=== PATIENT | female | born 1970 | race Caucasian/White ===

== ENCOUNTER → 2016-12-28 | Outpatient (CLI) | payer OTHER ==
--- NOTE | 2016-12-30 10:16 | MM ---
Reason for exam: screening (asymptomatic). Last mammogram was performed 9 years and 3 months ago. History: Taking hormonal contraceptives beginning at age 35. Physical Findings: A clinical breast exam by your physician is recommended on an annual basis and results should be correlated with mammographic findings. MG Screening Mammo w CAD Bilateral CC and MLO view(s) were taken. Prior study comparison: November 19, 2010, mammogram, performed at [facility]. November 13, 2010, mammogram, performed at [facility]. October 11, 2007, bilateral mammo digital work up. October 04, 2007, bilateral digital screening mammogram. The breast tissue is heterogeneously dense. This may lower the sensitivity of mammography. There is no discrete abnormality. ASSESSMENT: Negative, BI-RAD 1 RECOMMENDATION: Routine screening mammogram of both breasts in 1 year.
== END | disposition home or self-care (01) ==
LOC: RADMAMWWP 10:33
PROVIDERS: ATTEND Obstetrics & Gynecology
DX: Z12.31 Encounter for screening mammogram for malignant neoplasm of breast (principal)

== ENCOUNTER → 2018-08-30 | Outpatient (CLI) | payer OTHER ==
--- NOTE | 2018-08-30 09:25 | CT ---
EXAMINATION TYPE: CT abdomen pelvis w con DATE OF EXAM: 08/30/2018 HISTORY: Intermittent abdominal pain and chronic constipation per order. CT DLP: 781.2mGycm Automated Exposure Control for Dose Reduction was Utilized. CONTRAST: CT scan of the abdomen and pelvis is performed with oral and with IV Contrast, patient injected with 100 mL of Isovue 300. COMPARISON: Complete abdominal ultrasound July 31, 2014 FINDINGS: LUNG BASES: No significant abnormality is appreciated. LIVER/GB: No significant abnormality is appreciated. PANCREAS: No significant abnormality is seen. SPLEEN: No significant abnormality is seen. ADRENALS: No significant abnormality is seen. KIDNEYS: No significant abnormality is seen. BOWEL: Oral contrast reaches level of the proximal sigmoid colon. There is no suspicious small or lar ge bowel dilatation. No significant fecal prominence in the colon is identified. UTERUS/ADNEXA: Anteverted uterus is present. Left ovary is 2.2 cm low dense lesion felt to reflect pr ominent follicle or simple small ovarian cyst axial image 68. LYMPH NODES: No greater than 1cm abdominal or pelvic lymph nodes are appreciated. OSSEOUS STRUCTURES: No significant abnormality is seen. OTHER: No significant additional abnormality is seen. IMPRESSION: No significant finding is seen to account for patient's clinical symptoms of pain and con stipation.
== END | disposition home or self-care (01) ==
LOC: RADCTMAIN 06:39
PROVIDERS: ATTEND Family Medicine
DX: R10.9 Unspecified abdominal pain (principal)
CPT/HCPCS: 74177; Q9967

== ENCOUNTER 2018-09-27 08:23 | Day surgery (SDC) | payer OTHER ==
[2018-09-26 10:37] VITALS: BMI 27.0
[~2018-09-27 08:23] MED LIST: HYDROmorphone 0.5 MG/0.5 ML SYRINGE IVP PRN; LACTATED RINGERS 1,000 ML IV SCH
[2018-09-27 09:57] VITALS: TEMP 97.7
[2018-09-27] MEDS ORDERED: PROPOFOL 10 MG/ML 20 ML VIAL IV ONE (10:33)
[2018-09-27 11:04] VITALS: RESP 16
--- NOTE | 2018-09-27 11:09 | P.PCN ---
Date of Procedure: 09/27/18 Procedure(s) Performed: Procedure: Total colonoscopy. Preoperative diagnosis: Change in bowel habits. Postoperative diagnosis: Exam within normal limits. Preparation: HalfLytely prep. Sedation: Was provided by anesthesia. Brief clinical history: The patient is a 48-year-old female who I have evaluated in the office last month because of abdominal bloating and gassiness as well as change in bowels and caliber of stools off around 4-6 months duration. No family history of colon cancer or prior colonoscopy. Procedure: With the patient on her left lateral decubitus position and after informed consent and adequate sedation, the perianal area was inspected and it did not show any fissures or fissure. There were no masses felt on digital rectal examination. The Olympus CFH 190L video colonoscope was then inserted in the rectum in the usual fashion and advanced to the cecum. The mucosa appeared healthy. No polyps or tumors were seen or any obvious diverticular disease or other pathology. I retroflexed the endoscope in the rectum before the endoscope was withdrawn. The patient tolerated the procedure well. Plan: The patient was reassured. Discussed dietary measures. She will follow- up in the office as planned and I will keep you updated on her progress.
[2018-09-27 11:17] VITALS: BP 118/82; PULSE 89
== END 2018-09-27 11:43 | disposition home or self-care (01) ==
LOC: ORWHC2ENDO 08:23
DX: R19.4 Change in bowel habit (principal); Z88.2 Allergy status to sulfonamides
CPT/HCPCS: 45378; J2704

== ENCOUNTER → 2019-09-25 | Outpatient (CLI) | payer OTHER ==
--- NOTE | 2019-09-25 08:04 | US ---
EXAMINATION TYPE: US abdomen complete DATE OF EXAM: 09/25/2019 COMPARISON: CT 08/30/2018 CLINICAL HISTORY: R10.13 Epigastric Pain,R10.11 RUQ ABD Pain,K59.09. EXAM MEASUREMENTS: Liver Length: 12.8 cm Gallbladder Wall: 0.1 cm CBD: 0.4 cm Spleen: 10.4 cm Right Kidney: 9.6 x 5.0 x 3.8 cm Left Kidney: 9.4 x 4.9 x 5.5 cm Pancreas: wnl Liver: wnl Gallbladder: wnl Evidence for sonographic Cline's sign: no CBD: wnl Spleen: wnl Right Kidney: wnl, junctional fat wedge noted mid cortex (incidental and benign finding). Left Kidney: wnl Upper IVC: wnl Abd Aorta: wnl; very mild intimal wall thickening noted left Common Iliac Artery. The liver is homogenous. The intrahepatic portion of the IVC and proximal abdominal aorta are within normal limits. There is no evidence of cholelithiasis. Common bile duct is unremarkable. The visu alized portions of the pancreas are homogenous. The spleen is unremarkable. Kidneys are symmetric a nd free of hydronephrosis. No renal lesions are seen. IMPRESSION: No sonographic evidence of cholelithiasis nor acute cholecystitis. Given this patient's s ymptoms HIDA scan with CCK could be considered to evaluate for biliary dyskinesia or chronic cholecys titis.
== END | disposition home or self-care (01) ==
LOC: RADUSWWP 06:52
PROVIDERS: ATTEND Family Medicine
DX: K59.09 Other constipation (principal); R10.13 Epigastric pain; R10.11 Right upper quadrant pain
CPT/HCPCS: 76700

== ENCOUNTER → 2020-12-30 | Outpatient (CLI) | payer OTHER ==
--- NOTE | 2021-01-01 14:07 | MM ---
Reason for exam: screening (asymptomatic). Last mammogram was performed 4 years ago. History: Family history of breast cancer in sister at age 54. Took hormonal contraceptives beginning at age 35. Physical Findings: A clinical breast exam by your physician is recommended on an annual basis and results should be correlated with mammographic findings. MG Screening Mammo w CAD Bilateral CC and MLO view(s) were taken. Prior study comparison: December 28, 2016, bilateral MG screening mammo w CAD. November 19, 2010, mammogram, performed at [facility]. The breast tissue is heterogeneously dense. This may lower the sensitivity of mammography. There is a new mass in the far posterior left breast. There is a new asymmetry in the upper right breast on MLO view only. ASSESSMENT: Incomplete: need additional imaging evaluation, BI-RAD 0 RECOMMENDATION: Diagnostic mammogram of both breasts. If lesion persists on supplemental views, image directed ultrasound is recommended. [facility] will attempt to contact patient to return for supplemental views and ultrasound if indicated. NAVNEET
== END | disposition home or self-care (01) ==
LOC: RADMAMWWP 15:12
PROVIDERS: ATTEND Family Medicine
DX: Z12.31 Encounter for screening mammogram for malignant neoplasm of breast (principal); Z80.3 Family history of malignant neoplasm of breast
CPT/HCPCS: 77067

== ENCOUNTER → 2021-01-21 | Outpatient (CLI) | payer OTHER ==
--- NOTE | 2021-01-22 10:08 | MM ---
Reason for exam: additional evaluation requested from abnormal screening. Last mammogram was performed 1 month ago. History: Family history of breast cancer in sister at age 54. Took hormonal contraceptives beginning at age 35. Physical Findings: Nurse did not find any significant physical abnormalities on exam. MG Work Up Mamm w CAD BILAT Bilateral spot compression MLO and LM view(s) were taken. CC with magnification view(s) were taken of the left breast. Prior study comparison: December 30, 2020, bilateral MG screening mammo w CAD. December 28, 2016, bilateral MG screening mammo w CAD. Left 1.4cm focal asymmetry posterior wall, ultrasound left superior and central at chest wall. Right 4cm focal asymmetry axillary tail, 9cm from nipple. Right 2cm nodule 10-11 o'clock, 8cm from nipple. These results were verbally communicated with the patient and result sheet given to the patient on 01/21/21. ASSESSMENT: Incomplete: need additional imaging evaluation, BI-RAD 0 RECOMMENDATION: Ultrasound of both breasts.
--- NOTE | 2021-01-22 10:10 | USB ---
Reason for exam: additional evaluation requested from abnormal screening. History: Family history of breast cancer in sister at age 54. Took hormonal contraceptives beginning at age 35. US Breast Workup Limited JENNIFER Right limited breast ultrasound including focal area of concern, retroareolar and axilla demonstrates a 0.7 x 0.4 x 0.8cm cystic complex cyst at 10 o'clock. Left limited breast ultrasound including focal area of concern, retroareolar and axilla demonstrates a 1.0 x 0.4 x 0.7cm cystic complex cyst at 3 o'clock. Probably benign, does not correlate to mammographic findings. These results were verbally communicated with the patient and result sheet given to the patient on 01/21/21. ASSESSMENT: Probably benign, BI-RAD 3 RECOMMENDATION: Ultrasound of both breasts in 6 months.
== END | disposition home or self-care (01) ==
LOC: RADMAMWWP 10:04
PROVIDERS: ATTEND Family Medicine
DX: N63.11 Unspecified lump in the right breast, upper outer quadrant (principal); N64.89 Other specified disorders of breast; Z80.3 Family history of malignant neoplasm of breast
CPT/HCPCS: 77066

== ENCOUNTER → 2021-03-20 | Outpatient (CLI) | payer OTHER ==
[2021-03-20 10:29] VITALS: BP 122/82; PULSE 70; RESP 16; TEMP 98.1
--- NOTE | 2021-03-20 11:05 | P.GSHP ---
History of Present Illness H&P Date: 03/20/21 Chief Complaint: abnormal bilateral breast ultrasound Esther is a 50 year old white female seen in consultation for Dr. Mora regarding a mammographic abnormality in both breast. She does not feel any lumps masses or nodules of concern in either breast. She gets mammograms once a year, she her last mammogram was approximately a year ago. She does not complain of any nipple discharge or skin changes. She is not complaining of any trauma or infection in the breast. She's never had any surgery on her breast. Caffeine: 12 oz/day nicotine: none chocolate: weekly BCP: 10 years stopped at the age of 29 Family History: sister: breast cancer, age 53 did not have genetic testing paternal grandfather: prostate cancer Hormonal History: menarche: 14 , breast fed: yes, age at first : 27 periods regular BCP: 10 years stopped at 29 hormones: IUD placed for heavy periods; 5 year Mirena ? hormone releasing; (levonorgesterel a progestin does not contain estrogen) Surgical History: knee surgery foot surgery tonsil Medical History: none Social History: nicotine: noen alcohol: wine twice a month drugs: none - Constitutional Constitutional: Denies chills, Denies fever - EENT Eyes: denies blurred vision, denies pain Ears: deny: decreased hearing, tinnitus Ears, nose, mouth and throat: Denies headache, Denies sore throat - Breasts Breasts: bilateral: as per HPI - Cardiovascular Cardiovascular: Denies chest pain, Denies shortness of breath - Respiratory Respiratory: Denies cough, Denies 7 - Gastrointestinal Gastrointestinal: Denies abdominal pain, Denies diarrhea, Denies nausea, Denies vomiting - Genitourinary (Female) Genitourinary: Denies dysuria, Denies hematuria - Menstruation Comment: Mirena: ? hormone releasing Menstruation: Reports as per HPI - Musculoskeletal Musculoskeletal: Denies myalgias - Integumentary Integumentary: Denies pruritus, Denies rash - Neurological Neurological: Denies numbness, Denies weakness - Psychiatric Psychiatric: Denies anxiety, Denies depression - Endocrine Endocrine: Denies fatigue, Denies weight change - Hematologic/Lymphatic Comment: none - Allergic/Immunologic Allergic/Immunologic: Reports as per HPI Past Medical History Additional Past Medical History / Comment(s): constipation,pressure and bloating daily History of Any Multi-Drug Resistant Organisms: None Reported Past Surgical History: Section, Orthopedic Surgery Additional Past Surgical History / Comment(s): bunnionectomy,knee procedure, Past Anesthesia/Blood Transfusion Reactions: No Reported Reaction Smoking Status: Never smoker Past Alcohol Use History: Rare Past Drug Use History: None Reported - Past Family History Mother Family Medical History: No Reported History Medications and Allergies Home Medications Medication Instructions Recorded Confirmed Type Fish Oil (Unknown Dose) 1 tab PO DAILY 09/26/18 03/20/21 History L.acidoph,Paracasei, B.lactis 1 each PO DAILY 09/26/18 03/20/21 History [Probiotic] Vitamin D3 (Unknown Dose) 1 tab PO QAM 09/26/18 03/20/21 History Cyanocobalamin (Vitamin B-12) 5,000 mcg PO DAILY 03/20/21 03/20/21 History [Vitamin B12] Allergies Allergy/AdvReac Type Severity Reaction Status Date / Time Sulfa (Sulfonamide Allergy Rash/Hives Verified 03/20/21 10:26 Antibiotics) Surgical - Exam Vital Signs Temp Pulse Resp BP Pulse Ox 98.1 F 70 16 122/82 100 03/20/21 10:26 03/20/21 10:26 03/20/21 10:26 03/20/21 10:26 03/20/21 10:26 BMI 29.3 - General BMI 29.3 no distress - Eyes normal ocular movement - ENT no hearing loss - Neck no masses, trachea midline - Respiratory normal respiratory effort, clear to auscultation - Cardiovascular Rhythm: regular Heart Sounds: normal: S1, S2 - Abdomen Abdomen: soft - Integumentary normal turgor/tattoo left chest wall - Neurologic no disoriented, no combative - Musculoskeletal normal gait, normal posture - Psychiatric oriented to time, oriented to person, oriented to place, speech is normal, memory intact Breast Exam: BRA: 36C inspection: Grade 2 ptosis bilaterally Palpation: Right breast: Multi-positional exam fibrocystic changes, no dominant masses or nodules of concern Right axilla: No adenopathy of concern Left breast: Multi-positional exam fibrocystic changes no dominant masses or nodules of concern Left axilla: No adenopathy of concern Results Mammogram and ultrasound reviewed with Dr. De La Fuente. His recommendation is for ultrasound-guided core biopsy on both breasts. In the right breast 10 o'clock position, in the left breast 3 o'clock position with attempted aspiration first and if this is unable to be aspirated a core biopsy to be performed Assessment and Plan Assessment: Impression: 1. Radiographic abnormality bilateral breast 2. Patient sent to be placed which is a synthetic progestin admitting device Plan: 1. Ultrasound-guided core biopsy right breast 10 o'clock position, attempt at aspiration left breast 3 o'clock position if this can be aspirated aspiration otherwise core biopsy 2. Consider whether the IUD is a good choice at this time 3. Family history of breast cancer 4. Patient will have ultrasound core biopsies and/or aspiration of the lesions in the breast. Depending on results of this the patient will decide whether she wants to keep the IUD in place CC: Dr. Isaac Montilla
== END ==
LOC: WWCWWP 09:54
PROVIDERS: ATTEND Surgery
DX: R92.8 Other abnormal and inconclusive findings on diagnostic imaging of breast (principal); Z88.2 Allergy status to sulfonamides

== ENCOUNTER → 2021-03-31 | Outpatient (CLI) | payer OTHER ==
[2021-03-31 12:16] VITALS: RESP 16; TEMP 98.2
[2021-03-31 13:39] VITALS: BP 116/80; PULSE 73
--- NOTE | 2021-03-31 13:50 | USB ---
EXAMINATION TYPE: US breast aspiration single RT, US breast aspiration single LT DATE OF EXAM: 03/31/2021 COMPARISON: NONE CLINICAL HISTORY: R92.8 Abnormal Mammogram. Informed consent was obtained and all the patient's questions were answered. Right breast: Cyst at the right breast 10:00 position was localized sonographically. The standard [place] rile technique was utilized as well as appropriate local anesthesia with 1% lidocaine. An 18-gauge ne edle was introduced into the cyst and 0.3 mL's of the pinkish fluid was obtained. The cyst was no sangeeta kirstin visible. Clip device was then deployed. Post procedural mammogram demonstrates appropriate clip p lacement. Left breast:Cyst at the left 3:00 position was localized sonographically. The standard sterile techni que was utilized as well as appropriate local anesthesia with 1% lidocaine. An 18-gauge needle was in troduced into the cyst and 0.4 mLsof pinkish fluid was obtained. The cyst was no longer visible. Cli p device was then deployed. Post procedural mammogram demonstrates appropriate clip placement. IMPRESSION: Bilateral cyst aspirations at the right 10:00 position of left 3:00 position. Cytology r esults are pending.
--- NOTE | 2021-03-31 13:57 | MM ---
Reason for exam: additional evaluation requested from abnormal screening. Last mammogram was performed 2 months ago. History: Family history of breast cancer in sister at age 54. Took hormonal contraceptives beginning at age 35. MG Diagnostic Usman BI Wo CAD Bilateral CC and MLO view(s) were taken. Prior study comparison: January 21, 2021, bilateral MG work up mamm w CAD BILAT. December 30, 2020, bilateral MG screening mammo w CAD. ASSESSMENT: Post procedure mammogram for marker placement RECOMMENDATION: Ultrasound of both breasts in 6 months. PENDING PATHOLOGY RESULTS.
== END | disposition home or self-care (01) ==
LOC: RADUSWWP 11:52
PROVIDERS: ATTEND Surgery
DX: N60.01 Solitary cyst of right breast (principal); N60.02 Solitary cyst of left breast; Z80.3 Family history of malignant neoplasm of breast
CPT/HCPCS: 77066; 76942; 19000 ×2; A4648; J2001; 88108

== ENCOUNTER → 2021-04-10 | Outpatient (CLI) | payer OTHER ==
[2021-04-10 13:27] VITALS: BP 113/77; PULSE 79; RESP 16; TEMP 98
--- NOTE | 2021-04-10 13:59 | P.PN ---
Progress Note - Text Progress Note Date: 04/10/21 Esther is a 50-year-old white female who underwent bilateral breast aspirations on . This revealed bland ductal and apocrine cells in the background of foamy histiocytes. Both were consistent with fibrocystic changes and no evidence of cancer was identified. This was felt to be concordant as per radiology and mammogram of both breasts in 6 months was recommended. The patient tolerated the procedure without difficulty. Examination of both breasts reveals that the biopsy sites are clean and dry with no evidence of any infection Patient has questions regarding her IUD use and based on the findings on the recent aspiration she does not have any atypia or 3 malignant changes noted. She is going to discuss this with her lens assistant. CC: Dr. Mora, Dr. Gee
== END ==
LOC: WWCWWP 13:11
PROVIDERS: ATTEND Surgery
DX: N60.11 Diffuse cystic mastopathy of right breast (principal); N60.12 Diffuse cystic mastopathy of left breast; Z88.2 Allergy status to sulfonamides

== ENCOUNTER → 2021-10-13 | Outpatient (CLI) | payer OTHER ==
--- NOTE | 2021-10-14 08:40 | MM ---
Reason for exam: follow-up at short interval from prior study. Last mammogram was performed 6 months ago. History: Family history of breast cancer in sister at age 54. Benign US breast aspiration single LT of the left breast, March 31, 2021. Benign US breast aspiration single RT of the right breast, March 31, 2021. Taking hormonal contraceptives for 16 years beginning at age 35. Physical Findings: A clinical breast exam by your physician is recommended on an annual basis and results should be correlated with mammographic findings. MG 3D Diag Mammo W/Cad JENNIFER Bilateral CC, MLO, and XCCL view(s) were taken. Prior study comparison: March 31, 2021, bilateral MG diagnostic laverne BI wo CAD. January 21, 2021, bilateral MG work up mamm w CAD BILAT. The breast tissue is heterogeneously dense. This may lower the sensitivity of mammography. Previous mammotome biopsy in the right breast. No persisting abnormality on 3D images. The previous ribbon clip on the left is outside the field of view. No significant changes when compared with prior studies. ASSESSMENT: Benign, BI-RAD 2 RECOMMENDATION: Routine screening mammogram of both breasts in 1 year. Back on schedule.
== END | disposition home or self-care (01) ==
LOC: RADMAMWWP 12:51
PROVIDERS: ATTEND Surgery
DX: R92.8 Other abnormal and inconclusive findings on diagnostic imaging of breast (principal); Z80.3 Family history of malignant neoplasm of breast
CPT/HCPCS: 77066; G0279; 77062

== ENCOUNTER → 2021-10-17 | Outpatient (CLI) | payer OTHER ==
[2021-10-17 10:25] VITALS: BP 118/78; PULSE 83; RESP 18; TEMP 98.3
--- NOTE | 2021-10-17 11:00 | P.PN ---
Subjective Progress Note Date: 10/17/21 Principal diagnosis: fibrocystic breast changes Esther is a 51-year-old white female is seen regarding fibrocystic breast changes. She does not complain of any nipple discharge or skin changes. She is not complaining of any trauma or infection in the breast. She's never had any surgery on her breast, but has had bilateral cyst aspirations. She had an IUD placed secondary to very heavy periods approximately 9 months ago. She continues to have menstrual flow but it is very light. It is regular. She had bilateral breast ultrasound guided cyst aspiration on 03-31-21. Both were benign. She had a bilateral mammogram on 10-13-21 which was benign BIRAD 2. She is not using any hormone replacement at this time. Caffeine: 12 oz/day nicotine: none chocolate: weekly BCP: 10 years stopped at the age of 29 Family History: sister: breast cancer, age 53 did not have genetic testing paternal grandfather: prostate cancer Hormonal History: menarche: 14 , breast fed: yes, age at first : 27 periods regular BCP: 10 years stopped at 29 hormones: IUD placed for heavy periods; 5 year Mirena ? hormone releasing; (levonorgesterel a progestin does not contain estrogen) Surgical History: knee surgery foot surgery tonsil Medical History: none Social History: nicotine: noen alcohol: wine twice a month drugs: none - Constitutional Constitutional: Denies chills, Denies fever - EENT Eyes: denies blurred vision, denies pain Ears: deny: decreased hearing, tinnitus Ears, nose, mouth and throat: Denies headache, Denies sore throat - Breasts Breasts: bilateral: as per HPI - Cardiovascular Cardiovascular: Denies chest pain, Denies shortness of breath - Respiratory Respiratory: Denies cough - Gastrointestinal Gastrointestinal: Denies abdominal pain, Denies diarrhea, Denies nausea, Denies vomiting - Genitourinary (Female) Genitourinary: Denies dysuria, Denies hematuria - Menstruation Comment: Mirena: ? hormone releasing Menstruation: Reports as per HPI - Musculoskeletal Musculoskeletal: Denies myalgias - Integumentary Integumentary: Denies pruritus, Denies rash - Neurological Neurological: Denies numbness, Denies weakness - Psychiatric Psychiatric: Denies anxiety, Denies depression - Endocrine Endocrine: Denies fatigue, Denies weight change - Hematologic/Lymphatic Comment: none - Allergic/Immunologic Allergic/Immunologic: Reports as per HPI Objective - Vital Signs Vital signs: Vital Signs Temp 98.3 F 10/17/21 10:02 Pulse 83 10/17/21 10:02 Resp 18 10/17/21 10:02 BP 118/78 10/17/21 10:02 Pulse Ox 99 10/17/21 10:02 Intake & Output 10/16/21 10/17/21 10/17/21 18:59 06:59 18:59 Weight 83.915 kg - Exam BMI 29 - Constitutional General appearance: Present: cooperative - EENT Eyes: Present: EOMI ENT: Present: hearing grossly normal - Neck Neck: Present: normal ROM - Respiratory Respiratory: bilateral: CTA - Cardiovascular Rhythm: regular Heart sounds: normal: S1, S2 - Gastrointestinal General gastrointestinal: Present: soft - Integumentary Integumentary: Present: normal turgor - Musculoskeletal Musculoskeletal: Present: gait normal - Psychiatric Psychiatric: Present: A&O x's 3, appropriate affect, intact judgment & insight - Additional findings Additional findings: Breast Exam: BRA: 36C inspection: Bilateral grade 3 ptosis Palpation: Right breast: Fibrocystic dense breast tissue with no dominant masses or nodules of concern a multi-positional exam Right axilla: No adenopathy of concern Left breast: Multiple positional exam fibrocystic dense breast tissue with no discrete dominant masses or nodules of concern Left axilla: No adenopathy of concern Assessment and Plan Assessment: Impression: Perimenopausal white female with fibrocystic breast changes Plan: Monthly self breast examinations to call us if she notes anything of concern Repeat bilateral mammogram in 1 year with physician exam at that time Dr. Pete
== END ==
LOC: WWCWWP 09:46
PROVIDERS: ATTEND Surgery
DX: N60.11 Diffuse cystic mastopathy of right breast (principal); N60.12 Diffuse cystic mastopathy of left breast; Z78.0 Asymptomatic menopausal state; Z88.2 Allergy status to sulfonamides

== ENCOUNTER → 2022-10-22 | Outpatient (CLI) | payer OTHER ==
[2022-10-22 10:40] VITALS: BP 132/78; PULSE 72; RESP 16; TEMP 97.9
--- NOTE | 2022-10-22 11:00 | P.PN ---
Subjective Progress Note Date: 10/22/22 Principal diagnosis: fibrocystic breast changes fibrocystic breast changes Esther is a 52-year-old white female is seen regarding fibrocystic breast changes. She does not complain of any nipple discharge or skin changes. She is not complaining of any trauma or infection in the breast. She's never had any surgery on her breast, but has had bilateral cyst aspirations. She had bilateral breast ultrasound guided cyst aspiration on 03-31-21. Both were benign. She had a bilateral mammogram on 10-13-21 which was benign BIRAD 2, she is due for one today. Periods are very irregular, her last menstrual period was approximately 3 weeks ago. She has an IUD in place. She states it may have some very small amount of hormones that it dispenses. She is supposed to have this changed in 5 years. She is not using any hormone replacement at this time. Caffeine: 12 oz/day nicotine: none chocolate: weekly BCP: 10 years stopped at the age of 29 Family History: sister: breast cancer, age 53 genetic testing was (-) paternal grandfather: prostate cancer Hormonal History: menarche: 14 , breast fed: yes, age at first : 27 periods regular BCP: 10 years stopped at 29 hormones: IUD placed for heavy periods; 5 year Mirena ? hormone releasing; (levonorgesterel a progestin does not contain estrogen) Surgical History: knee surgery foot surgery tonsil Medical History: none Social History: nicotine: noen alcohol: wine twice a month drugs: none - Constitutional Constitutional: Denies chills, Denies fever - EENT Eyes: denies blurred vision, denies pain Ears: deny: decreased hearing, tinnitus Ears, nose, mouth and throat: Denies headache, Denies sore throat - Breasts Breasts: bilateral: as per HPI - Cardiovascular Cardiovascular: Denies chest pain, Denies shortness of breath - Respiratory Respiratory: Denies cough - Gastrointestinal Gastrointestinal: Denies abdominal pain, Denies diarrhea, Denies nausea, Denies vomiting - Genitourinary (Female) Genitourinary: Denies dysuria, Denies hematuria - Menstruation Comment: Mirena: ? hormone releasing Menstruation: Reports as per HPI - Musculoskeletal Musculoskeletal: Denies myalgias - Integumentary Integumentary: Denies pruritus, Denies rash - Neurological Neurological: Denies numbness, Denies weakness - Psychiatric Psychiatric: Denies anxiety, Denies depression - Endocrine Endocrine: Denies fatigue, Denies weight change - Hematologic/Lymphatic Comment: none - Allergic/Immunologic Allergic/Immunologic: Reports as per HPI Objective - Vital Signs Vital signs: Vital Signs Temp 97.9 F 10/22/22 10:38 Pulse 72 10/22/22 10:38 Resp 16 10/22/22 10:38 BP 132/78 10/22/22 10:38 Pulse Ox 96 10/22/22 10:38 FiO2 Intake & Output 10/21/22 10/22/22 10/22/22 18:59 06:59 18:59 Weight 70.307 kg - Constitutional General appearance: Present: cooperative - EENT ENT: Present: hearing grossly normal - Neck Neck: Present: normal ROM - Respiratory Respiratory: bilateral: CTA - Cardiovascular Rhythm: regular Heart sounds: normal: S1, S2 - Gastrointestinal General gastrointestinal: Present: soft - Integumentary Integumentary: Present: normal turgor - Musculoskeletal Musculoskeletal: Present: gait normal - Psychiatric Psychiatric: Present: A&O x's 3, appropriate affect, intact judgment & insight - Additional findings Additional findings: Breast Exam: BRA: 36C inspection: Bilateral grade 3 ptosis Palpation: Right breast: Fibrocystic dense breast tissue with no dominant masses or nodules of concern a multi-positional exam Right axilla: No adenopathy of concern Left breast: Multiple positional exam fibrocystic dense breast tissue with no discrete dominant masses or nodules of concern Left axilla: No adenopathy of concern Assessment and Plan Assessment: Impression: Fibrocystic breast changes Patient due for bilateral mammogram today Plan: Bilateral mammogram if this is benign BIRADS 2 lower procedure patient again in 1 year Patient follow-up sooner any questions or concerns Have discussed taking out the IUD in the past and at this time she is just going to have close surveillance, she is not interested in chemo prophylaxis at this time regardless of the Enedina risk evaluation CC: Dr. Sean Pete
--- NOTE | 2022-10-23 08:09 | MM ---
Reason for Exam: Screening (asymptomatic). Last mammogram was performed 1 year(s) and 1 month(s) ago. Patient History: Menarche at age 13. First Full-Term at age 29. Currently using Hormonal Contraceptives, beginning at age 35 for 16 years. 03/31/2021, Benign Cyst Aspiration on the left side. 03/31/2021, Benign Cyst Aspiration on the right side. Sister had breast cancer, age 54. Risk Values: Enedina 5 year model risk: 2.0%. NCI Lifetime model risk: 16.6%. Prior Study Comparison: 01/21/2021 Bilateral Diagnostic Mammogram, [facility]. 03/31/2021 Bilateral Diagnostic Mammogram, [facility]. 10/13/2021 Bilateral Diagnostic Mammogram, [facility]. Tissue Density: The breast tissue is heterogeneously dense. This may lower the sensitivity of mammography. Findings: Analyzed By CAD. There is no suspicious group of microcalcifications or new suspicious mass in either breast. Biopsy clips within both breasts. Overall Assessment: Benign, BI-RAD 2 Management: Screening Mammogram of both breasts in 1 year. A clinical breast exam by your physician is recommended on an annual basis and results should be correlated with mammographic findings. Electronically signed and approved by: Poncho Lomeli D.O.
== END ==
LOC: WWCWWP 10:29
PROVIDERS: ATTEND Surgery
DX: N60.11 Diffuse cystic mastopathy of right breast (principal); R92.8 Other abnormal and inconclusive findings on diagnostic imaging of breast; N60.12 Diffuse cystic mastopathy of left breast; Z97.5 Presence of (intrauterine) contraceptive device; Z12.31 Encounter for screening mammogram for malignant neoplasm of breast; Z80.3 Family history of malignant neoplasm of breast; Z80.42 Family history of malignant neoplasm of prostate; Z88.2 Allergy status to sulfonamides
CPT/HCPCS: 77067

== ENCOUNTER → 2024-06-12 | Outpatient (CLI) | payer OTHER ==
--- NOTE | 2024-06-13 07:58 | MM ---
Reason for Exam: Screening (asymptomatic). Last mammogram was performed 1 year(s) and 7 month(s) ago. Patient History: Menarche at age 13. First Full-Term at age 29. Premenopausal. Currently using Hormonal Contraceptives, beginning at age 35 for 16 years. 03/31/2021, Benign Cyst Aspiration on the left side. 03/31/2021, Benign Cyst Aspiration on the right side. Sister had breast cancer, age 54. Sister tested for BRCA1 outcome was negative. Risk Values: Enedina 5 year model risk: 2.1%. NCI Lifetime model risk: 16.3%. Prior Study Comparison: 03/31/2021 Bilateral Diagnostic Mammogram, [facility]. 10/13/2021 Bilateral Diagnostic Mammogram, [facility]. 10/22/2022 Bilateral MG screening mammo w CAD, [facility]. Tissue Density: The breasts are heterogeneously dense, which may obscure small masses. Findings: Analyzed By CAD. Surgical clips are seen. Benign appearing calcifications. There is no suspicious group of microcalcifications or new suspicious mass in either breast. Overall Assessment: Benign, BI-RAD 2 Management: Screening Mammogram of both breasts in 1 year. . Patient should continue monthly self-breast exams. A clinical breast exam by your physician is recommended on an annual basis. This exam should not preclude additional follow-up of suspicious palpable abnormalities. Note on Enedina scores and lifetime risk: 1. A Enedina score greater than 3% is considered moderate risk. If this is the case, consider specialist referral to assess eligibility for a risk reducing agent. 2. If overall lifetime risk for the development of breast cancer is 20% or higher, the patient may qualify for future screening with alternating mammogram and breast MRI. [facility], , 06/13/2024 7:55 AM. Electronically signed and approved by: Tim Pretty M.D. Radi[facility]
== END | disposition home or self-care (01) ==
LOC: RADMAMWWP 14:28
PROVIDERS: ATTEND Family Medicine
DX: Z12.31 Encounter for screening mammogram for malignant neoplasm of breast (principal); Z80.3 Family history of malignant neoplasm of breast; R92.333 Mammographic heterogeneous density, bilateral breasts
CPT/HCPCS: 77067